=== PATIENT | female | born 1970 | race American Indian/Alaskan Native ===

== ENCOUNTER 2018-04-15 05:57 | Day surgery (SDC) | payer BC ==
[2016-05-19 09:16] VITALS: BMI 44.9
[2018-04-15 06:58] VITALS: O2SAT 100
[2018-04-15] MEDS ORDERED: Iohexol 240 (50 ml) ONE (07:24)
[2018-04-15] MEDS ORDERED: Midazolam 2 MG/2 ML VIAL ONE (07:57)
[2018-04-15] MEDS ORDERED: Propofol 10 mg/ml Inj (20 ML) ONE (07:58)
[2018-04-15] MEDS ORDERED: Succinylcholine Chloride 20 mg/ml Syr (5 ml) IV ONE (07:58)
[2018-04-15] MEDS ORDERED: White Petrolatum/Mineral Oil Ophth Oint(3.5 gm) ONE (07:58)
--- NOTE | 2018-04-15 08:05 | CP.SDSHP ---
Same Day Surgery H & P - History Proposed Procedure: ERCP Pre-Op Diagnosis: Choledocholithiasis - Previous Medical/Surgical History Cardiac: Hypertension Misc: Anemia Previous Surgical History: cholecystectomy, right knee replacement - Allergies Allergies: Allergies Penicillins Allergy (Verified 12/06/15 09:11) RASH - Current Medications Current Medications: See reconciliation sheet - Physical Exam General Appearance: WD WN female in NAD Vital Signs: Vital Signs 04/15/18 06:49 Temperature 97.8 F Pulse Rate 71 Respiratory 19 Rate Blood Pressure 127/69 O2 Sat by Pulse 100 Oximetry Mental Status: Alert & Oriented x3 Neuro: WNL Heart: WNL Lungs: WNL GI: WNL - {Optional Preform as Required} Abdomen: WNL - Impression Impression: Choledocholithiasis Pt. Evaluated Today:Candidate for Anesthesia & Procedure: Yes - Date & Time Date: 04/15/18 Time: 08:04 Short Stay Discharge - Short Stay Discharge Admitting Diagnosis/Reason for Visit: CALCULUS OF COMMON BILE DUCT Disposition: HOME/ ROUTINE Referrals: Panda Dorado MD [Primary Care Provider] -
[2018-04-15] MEDS ORDERED: Lactated Ringer's 1,000 ML IV ONE (08:13)
[2018-04-15] MEDS ORDERED: Indomethacin 50 MG Suppository PR ONE (08:22)
[2018-04-15] MEDS ORDERED: Lactated Ringer's 500 ML IV SCH (09:45)
[2018-04-15 09:57] VITALS: TEMP 96.8
[2018-04-15 11:33] VITALS: BP 129/78; PULSE 77; RESP 13
--- NOTE | 2018-04-15 16:42 | RAD ---
Date of service: 04/15/2018 PROCEDURE: Intraoperative Fluoroscopy. HISTORY: CBD STONE FINDINGS: Fluoroscopic assistance was provided. Fluoroscopy time = 415.9 sec. Radiation dose = 6.92 mGy-cm. Please refer to the operative report from CLAUS Latham DR, MD.
== END 2018-04-15 11:30 | disposition home or self-care (01) ==
LOC: C.SDS 05:57
PROVIDERS: ATTEND Internal Medicine Gastroenterology
DX: K80.50 Calculus of bile duct without cholangitis or cholecystitis without obstruction (principal); K83.8 Other specified diseases of biliary tract; D64.9 Anemia, unspecified; I10 Essential (primary) hypertension; Z88.0 Allergy status to penicillin; Z96.651 Presence of right artificial knee joint
CPT/HCPCS: 43262; 82948; 84703; C1726; C1769; C2617; J7120